=== PATIENT | male | born 1975 | race Caucasian/White ===

== ENCOUNTER 2019-10-04 10:11 | Emergency (ER) | payer OTHER ==
[2019-10-04 10:17] VITALS: BP 135/85; PULSE 60; RESP 18; TEMP 98.3
--- NOTE | 2019-10-04 10:52 | ED ---
ENT HPI - General Chief complaint: ENT Stated complaint: ear pain/swelling Time Seen by Provider: 10/04/19 10:19 Source: patient Mode of arrival: ambulatory Limitations: no limitations - History of Present Illness Initial comments: Patient is a 44-year-old male presenting to the emergency Department with complaints of drainage of his right ear that has been increasing over the past 2 days. Patient states this has been a chronic issue and he has seen an ENT in [place]. Patient states he was using fungal ear drops which did clear up but the symptoms came back. Patient denies any fever, chills. He denies any throat pain, nausea or vomiting. He denies any facial pain or jaw pain. He has no further complaints at this time. - Related Data Previous Rx's Medication Instructions Recorded Bismuth Subsalicylate 30 ml PO QID #1 bottle 01/07/16 [Pepto-Bismol] Ondansetron Odt [Zofran Odt] 4 mg PO Q8HR PRN #10 tab 01/07/16 Cdwdaakp-Dltuuzgel-Kz Otic 4 drops RIGHT EAR QID 7 Days #1 10/04/19 [Cortisporin Otic Soln] bottle Allergies Allergy/AdvReac Type Severity Reaction Status Date / Time narcotics AdvReac Unknown Uncoded 01/07/16 16:39 Review of Systems ROS Statement: Those systems with pertinent positive or pertinent negative responses have been documented in the HPI. ROS Other: All systems not noted in ROS Statement are negative. Past Medical History Past Medical History: GERD/Reflux History of Any Multi-Drug Resistant Organisms: None Reported Past Surgical History: No Surgical Hx Reported Past Psychological History: No Psychological Hx Reported Smoking Status: Former smoker Past Alcohol Use History: None Reported Past Drug Use History: None Reported General Exam - General Exam Comments Initial Comments: GENERAL: Patient is well-developed and well-nourished. Patient is nontoxic and in no acute distress. HEAD: Atraumatic, normocephalic. EYES: Pupils equal round and reactive to light, extraocular movements intact, sclera anicteric, conjunctiva are normal. Eyelids were unremarkable. ENT: Left TM and EAC is normal. Right EAC is erythematous, swollen, TM appears normal at this time. Nares patent, oropharynx clear without exudates. Moist mucous membranes. NECK: Normal range of motion, supple without lymphadenopathy or JVD. LUNGS: Unlabored respirations. Breath sounds clear to auscultation bilaterally and equal. No wheezes rales or rhonchi. HEART: Regular rate and rhythm without murmurs, rubs or gallops. ABDOMEN: Soft, nontender, normoactive bowel sounds. No guarding, no rebound. No masses appreciated. : Deferred MUSCULOSKELETAL: Normal extremities with adequate strength and normal range of motion, no pitting or edema. No clubbing or cyanosis. NEUROLOGICAL: Patient is alert and oriented x 3. Motor and sensory are also intact. Cranial nerves II through XII grossly intact. Normal speech, normal gait. PSYCH: Normal mood, normal affect. SKIN: Warm, Dry, normal turgor, no rashes or lesions noted. Limitations: no limitations Course Vital Signs 10/04/19 10:14 Temperature 98.3 F Pulse Rate 60 Respiratory 18 Rate Blood Pressure 135/85 O2 Sat by Pulse 99 Oximetry Medical Decision Making - Medical Decision Making Patient is a 44-year-old male presenting with otitis external of the right here. He was taking a fungal eardrop a couple weeks ago. I Did obtain a culture of the right ear since this has been going on for a few weeks. I will start patient on polymycin/neomycin/HC ear drops. Recommended continue with Tylenol or Motrin for discomfort. Patient will also follow up with his ENT. He is stable for discharge and he is in agreement with this plan of care. Return parameters were discussed with the patient and he verbalized understanding. C ase discussed with Dr. De La Cruz Disposition Clinical Impression: Right otitis externa Disposition: HOME SELF-CARE Condition: Stable Instructions (If sedation given, give patient instructions): Otitis Externa (ED) Additional Instructions: Please return to the Emergency Department if symptoms worsen or any other concerns. Use eardrops as discussed. Follow up with ENT. Prescriptions: Tkrwukuh-Sbvnkwctm-Nl Otic [Cortisporin Otic Soln] 4 drops RIGHT EAR QID 7 Days #1 bottle Is patient prescribed a controlled substance at d/c from ED?: No Referrals: Nonstaff,Physician [REFERRING] - 1-2 days
== END 2019-10-04 11:10 | disposition home or self-care (01) ==
LOC: EC 10:11
DX: H60.91 Unspecified otitis externa, right ear (principal); Z88.5 Allergy status to narcotic agent; Z87.891 Personal history of nicotine dependence
CPT/HCPCS: 87070; 87205; 99283